=== PATIENT | female | born 1955 | race Caucasian/White ===

== ENCOUNTER 2018-02-23 00:59 | Inpatient (IN) | payer BC, OTHER ==
[~2018-02-23] VITALS: Ht 177.8 cm; Wt 74.8 kg
[2018-02-23] VITALS (7 sets, daily range): BP systolic 103–122; BP diastolic 52–72
--- NOTE | ~2018-02-23 | EKG ---
[place] [address] [email or web address] [place] [address] ELECTROCARDIOGRAM REPORT Name: DARLYN PATEL Room #: 355-P ADM IN .R.#: [id number] Admission: 02/23/18 Attend Phys: Irvin Reynoso Discharge: Date of : 51 Report #: [id number] THIS REPORT FOR: //name// [facility] ED Test Date: 2018-02-23 Test Time: 01:07:30 Pat Name: DARLYN PATEL Department: Room: Gender: F Knockdown Man: THESINGJ : 1955 Requested By: Huang Lowery Order Number: [id number] MD: Wilmar Waters Measurements Intervals [place] Rate: 65 P: 75 SC: 180 QRS: 55 QRSD: 100 T: 59 QT: 414 QTc: 431 Interpretive Statements Sinus rhythm RSR' in V1 or V2, right VCD No previous ECG available for comparison Electronically Signed On 02-23-2018 8:29:21 CDT by Wilmar Waters [email or web address] <ELECTRONICALLY SIGNED> By: Wilmar Waters MD, [facility] 02/23/18 0829 106 6 Wilmar Waters MD, FACC /EPI
--- NOTE | ~2018-02-23 | 2DMMODE ---
[facility] [address] [place] [address] 2 D/M-MODE ECHOCARDIOGRAM Name: DARLYN PATEL Room #: 355-P ADM IN M.R.#: [id number] Admission: 02/23/18 Attend Phys: Irvin Ren Discharge: Date of : 51 Date of Service: 02/23/18 1340 Report #: [id number] THIS REPORT FOR: //name// APPROVED REPORT Study performed: 02/23/2018 12:39:00 EXAM: Comprehensive 2D, Doppler, and color-flow Echocardiogram Patient Location: Echo lab Room #: [facility] Status: routine BSA: 1.92 HR: 66 bpm BP: 103/63 mmHg Other Information Study Quality: Good Indications Atrial Fibrillation Syncope 2D Dimensions RVDd: 28.46 mm LVEF(%): 54.85 (>50%) IVSd: 7.85 (7-11mm) LVOT Diam: 20.65 (18-24mm) LVDd: 50.29 mm PWd: 7.89 (7-11mm) Ascending Ao: 29.26 (22-36mm) LVDs: 35.91 (25-40mm) Aortic Root: 30.54 mm IVC: 14.00 mm Otto's LVEF: 54.85 % Volumes Left Atrial Volume (Systole) Single Plane 4CH: 35.22 mL Single Plane 2CH: 28.52 mL LA ESV Index: 20.00 mL/m2 Aortic Valve AoV Peak Alex.: 1.31 m/s AO Peak Gr.: 6.84 mmHg LVOT Max P.69 mmHg LVOT Max V: 1.08 m/s TAZ Vmax: 2.77 cm2 Mitral Valve E/A Ratio: 1.1 MV Decel. Time: 226.36 ms [facility] [place] [address] 2 D/M-MODE ECHOCARDIOGRAM Name: DARLYN PATEL Room #: 355-[facility] IN M.R.#: [id number] Admission: 02/23/18 Attend Phys: Irvin Ren Discharge: Date of : 51 Date of Service: 02/23/18 1340 Report #: [id number] MV E Max Alex.: 0.78 m/s MV A Alex.: 0.68 m/s MV PHT: 65.64 ms IVRT: 83.04 ms Pulmonary Valve PV Peak Alex.: 0.86 m/s PV Peak Gr.: 2.99 mmHg Pulmonary Vein P Vein S: 0.39 m/s P Vein A: 0.24 m/s P Vein D: 0.35 m/s P Vein A Dur.: 110.7 msec P Vein S/D Ratio: 1.11 Tricuspid Valve TR Peak Alex.: 2.25 m/s TR Peak Gr.: 20.28 mmHg PA Pressure: 25.00 mmHg Left Ventricle The left ventricle is normal size. There is normal LV segmental wall motion. There is normal left ventricular wall thickness. The left ventricular systolic function is normal. The left ventricular ejection fraction is within the normal range. LVEF is 55-60%. The left ventricular diastolic function is normal. Right Ventricle The right ventricle is normal size. The right ventricular systolic function is normal. Atria The left atrium size is normal. The right atrium size is normal. Aortic Valve The aortic valve is normal in structure. No aortic regurgitation is present. There is no aortic valvular stenosis. Mitral Valve The mitral valve is normal in structure. Trace mitral regurgitation. No evidence of mitral valve stenosis. Tricuspid Valve The tricuspid valve is normal in structure. There is trace tricuspid regurgitation. Estimated PAP 25 mmHg. There is no pulmonary hypertension. [facility] [address] [place] [address] 2 D/M-MODE ECHOCARDIOGRAM Name: DARLYN PATEL Room #: 355-P [facility] IN [facility]#: [id number] Admission: 02/23/18 Attend Phys: Irvin Ren Discharge: Date of : 51 Date of Service: 02/23/18 1340 Report #: [id number] Pulmonic Valve The pulmonary valve is normal in structure. Trace pulmonic regurgitation. Great Vessels The aortic root is normal in size. IVC is normal in size and collapses >50% with inspiration. Pericardium There is no pericardial effusion. <Conclusion> The left ventricle is normal size. LVEF is 55-60%. The aortic valve is normal in structure. The mitral valve is normal in structure. Trace mitral regurgitation. The tricuspid valve is normal in structure. There is trace tricuspid regurgitation. Estimated PAP 25 mmHg. There is no pulmonary hypertension. The pulmonary valve is normal in structure. Trace pulmonic regurgitation. There is no pericardial effusion. <ELECTRONICALLY SIGNED> By: Miguel Reyes MD 02/23/18 1340 1340 134 Miguel Reyes MD /INF
[~2018-02-23 00:59] MED LIST: FISH OIL 1,001000 M2 PO; FLOMAX0.4 MG PO; PERCOCET 5-3251 EACH PO; TUMS PO
[2018-02-23 01:43] LABS: ABSOLUTE NEUTROPHILS 3.8 thou/uL (1.4-8.2); ANION GAP 6 mmol/L (7-16); BASOPHILS 0.7 % (0.0-2.0); BUN 19 mg/dL (7-18); CALCIUM 9.3 mg/dL (8.5-10.1); CHLORIDE 103 mmol/L (98-107); CO2 31 mmol/L (21-32); CREATININE 0.9 mg/dL (0.6-1.0); EOSINOPHILS 2.2 % (0.0-3.0); GLUCOSE 104 mg/dL (74-106); HEMATOCRIT 43.8 % (37.0-47.0); HEMOGLOBIN 14.8 gm/dL (12.0-15.0); LYMPHOCYTES 39.4 % (24.0-44.0); MCH 29.8 pg (26.0-34.0); MCHC 33.8 g/dL (28.0-37.0); MONOCYTES 10.6 % (1.0-8.0); PLATELET COUNT 329 thou/uL (150-400); POLYS 47.1 % (36.0-66.0); POTASSIUM 3.6 mmol/L (3.5-5.1); RBC 4.97 mil/uL (4.20-5.00); RDW 13.7 % (10.5-14.5); SODIUM 140 mmol/L (136-145); WBC 8.1 thou/uL (4.0-11.0)
[2018-02-23 01:52] LABS: PROTIME 9.9 Seconds (9.3-11.4)
[2018-02-23 01:53] LABS: ALBUMIN 4.2 g/dL (3.4-5.0); SGOT 35 U/L (15-37); SGPT 34 U/L (30-65); TOTAL BILIRUBIN 0.6 mg/dL (<0.1-1.0); TOTAL PROTEIN 7.9 g/dL (6.4-8.2); TROPONIN-I < 0.04 ng/mL (<0.06)
[2018-02-24 04:55] VITALS: BP 119/63
[2018-02-24 06:09] LABS: HEMATOCRIT 37.1 % (37.0-47.0); MCH 29.7 pg (26.0-34.0); MCHC 33.6 g/dL (28.0-37.0); MCV 88.4 fL (80.0-100.0); RBC 4.2 mil/uL (4.20-5.00); RDW 13.5 % (10.5-14.5); WBC 5.1 thou/uL (4.0-11.0)
[2018-02-24 06:12] LABS: HEMOGLOBIN 12.5 gm/dL (12.0-15.0)
[2018-02-24 06:18] LABS: CALCIUM 8.6 mg/dL (8.5-10.1); CREATININE 0.6 mg/dL (0.6-1.0); POTASSIUM 3.7 mmol/L (3.5-5.1)
[2018-02-24 07:54] VITALS: BP 114/63
[2018-02-24 12:10] VITALS: BP 125/68
[2018-02-24] MEDS ORDERED: ASPIR-TRIN325 MG PO (12:46)
[2018-02-24 13:07] VITALS: BP 125/68
== END 2018-02-24 13:47 | disposition home or self-care (01) | DRG 310 ==
LOC: ER 00:59 → EROBS 02:36 → 3W 02:36
PROVIDERS: Emergency Medicine; Nurse Practitioner Family
DX: I48.91 Unspecified atrial fibrillation (principal); S03.2XXA Dislocation of tooth, initial encounter; X58.XXXA Exposure to other specified factors, initial encounter; Y93.89 Activity, other specified; Y92.89 Other specified places as the place of occurrence of the external cause; Y99.8 Other external cause status; Z79.899 Other long term (current) drug therapy; Z88.1 Allergy status to other antibiotic agents
CPT/HCPCS: 10879

== ENCOUNTER → 2018-04-25 | Outpatient (CLI) | payer BC, OTHER ==
[~2018-04-25] MED LIST changes: +ASPIR-TRIN325 MG PO
== END ==
LOC: RAD 10:12
DX: R05 Cough (principal); R07.9 Chest pain, unspecified; R91.8 Other nonspecific abnormal finding of lung field

== ENCOUNTER → 2021-10-15 | Outpatient (CLI) | payer OTHER, MEDICARE | LOC: CAT 08:47 | PROVIDERS: ATTEND Family Medicine | DX: R10.9 Unspecified abdominal pain (principal) ==